=== PATIENT | female | born 1985 | race Caucasian/White ===

== ENCOUNTER 2016-10-27 21:15 | Emergency (ER) | payer SELFPAY ==
[~2016-10-27] VITALS: Ht 162.6 cm; Wt 108.9 kg
--- OUTSIDE RECORDS SUMMARY | 2016-10-27 21:29 | XMS REPORT | Continuity of Care Document ---
Author Author [facility] Organization [facility] Address Unknown Phone Unavailable Care Team Providers Care Shiftman Name Role Phone PCP Unavailable Source Comments Some departments are not documenting in the electronic medical record. If you do not see the information that you expected, contact Release of Information in the Health Information Management department at [phone] for further assistance in locating additional records.[facility] Active Allergies and Adverse Reactions Allergen Noted Date Severity Reactions Comments Benadryl 06/13/2015 Medium HIVES Current Medications Prescription Sig. Disp. Refills Start End Date Status Date Bismuth Subsalicylate 262 Take by mouth twice Active mg tab daily. lithium carbonate 300 mg Take 300 mg by mouth Active tablet twice daily. citalopram (CELEXA) 20 mg Take 20 mg by mouth Active tablet daily. 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 Info given on vaginismus and discussed in detail. Time spent counseling face to face greater than 50% visit. Time=60 minutes Social History Tobacco Use Types Packs/Day Years Used Date Never Smoker Smokeless Tobacco: Never Used Alcohol Use Drinks/Week oz/Week Comments No 0 Standard 0.0 drinks or equivalent Last Filed Vital Signs Vital Sign Reading Time Taken Blood Pressure 132/61 2015 9:51 AM ENTRY LEVEL CHEMIST Pulse 82 2015 9:51 AM ENTRY LEVEL CHEMIST Temperature - - Respiratory Rate - - Height 1.638 m (5' 4.5") 2015 9:51 AM ENTRY LEVEL CHEMIST Weight 111.403 kg (245 lb 9.6 2015 9:51 AM ENTRY LEVEL CHEMIST oz) Body Mass Index 41.52 2015 9:51 AM ENTRY LEVEL CHEMIST Oxygen Saturation 100% 2015 9:51 AM ENTRY LEVEL CHEMIST Plan of Care Health Maintenance Due Date Last Done Comments Physical (Comprehensive) 1992 Exam Pertussis Vaccine 1996 Tetanus Vaccine 2002 Influenza Vaccine 12/24/2016 Cervical Cancer Screening 06/13/2018 06/13/2015 Results from Last 3 Months Not on file
[2016-10-27] MEDS ORDERED: MULT-974 PO (21:42)
[2016-10-27] MEDS ORDERED: NF-ESOM40C PO (21:42)
[2016-10-27 22:02] LABS: BILIRUBIN,URINE NEGATIVE (NEGATIVE); KETONES,URINE NEGATIVE (NEGATIVE); LEUKOCYTE ESTERASE ,URINE 2+ (NEGATIVE); NITRITE,URINE NEGATIVE (NEGATIVE); PH,URINE 5 (5-9); PROTEIN,URINE NEGATIVE (NEGATIVE); UROBILINOGEN,URINE NORMAL (NORMAL)
[2016-10-27] MEDS ORDERED: metroNIDAZOLE 500 MG (FLAGYL) TAB PO STA (22:31)
[2016-10-27] MEDS ORDERED: CLINDAMYCIN 150 MG (CLEOCIN) CAP PO STA (22:31)
[2016-10-27] MEDS ORDERED: DOXY100T2 PO (22:37)
[2016-10-27] MEDS ORDERED: METR500T PO (22:37)
[2016-10-27] MEDS ORDERED: DOXYCYCLINE 100 MG (VIBRAMYCIN) TABLET PO STA (22:38)
--- NOTE | 2016-10-27 22:38 | ED GU-Female ---
General Chief Complaint: -Female Stated Complaint: PELVIC PAIN Nursing Triage Note: pt reports irregular periods x 2 months. pt reports vaginal burning and pain. pt also reports yellow/brown discharge. Nursing Sepsis Screen: No Definite Risk History of Present Illness Time seen by provider: 22:00 Initial Comments Evaluation for pelvic pain and vaginal discharge. The patient has a previous history of PID a proximally 2 years ago. She is also been treated for Trichomonas in the past. She is but they have an open relationship. She reports her symptoms began approximately 2 months ago after having a new partner. Her last pelvic and Pap for approximately one year ago in [place]. She has tried treating herself with Keflex and Monistat, the symptoms continue and seemed to be getting worse. Her denies any symptoms. Timing/Duration: getting worse Severity/Quality: moderate Location: suprapubic, groin, vaginal Radiation: none Prior Genitourinary Problems: similar symptoms Sexual [place] History: multiple partners Associated Symptoms: denies symptoms Allergies and Home Medications Allergies Coded Allergies: diphenhydramine (Unverified Allergy, Mild, 08/27/09) Home Medications Doxycycline Hyclate 100 Mg Tablet, 100 MG PO BID, #28 Ref 0 Prescribed by: JAN WHEATLEY on 10/27/162236 Esomeprazole Magnesium 40 Mg Cap, 40 MG PO, (Reported) Metronidazole 500 Mg Tablet, 500 MG PO BID, #28 Ref 0 Prescribed by: JAN HWEATLEY on 10/27/162236 Multivitamin 1 Each Tablet, 1 EACH PO, (Reported) Constitutional: no symptoms reported, see HPI EENTM: no symptoms reported, see HPI Respiratory: no symptoms reported, see HPI Cardiovascular: no symptoms reported, see HPI Gastrointestinal: no symptoms reported, see HPI Genitourinary: see HPI, burning, discharge, dysuria : No (history of tubal ligation.) Musculoskeletal: no symptoms reported, see HPI Skin: no symptoms reported, see HPI Psychiatric/Neurological: No Symptoms Reported, See HPI Endocrine: No Symptoms Reported, See HPI Hematologic/Lymphatic: No Symptoms Reported, See HPI All Other Systemes Reviewed Negative Unless Noted: Yes Past [place]-Ojylok-Omqpjk Hx Patient Social History Alcohol Use: Denies Use Recreational Drug Use: No Smoking Status: Never a Smoker Recent Foreign Travel: No Contact w/Someone Who Travel: No Recent Infectious Disease Expo: No Surgeries Surgeries: Section, Tonsillectomy, Tubal Ligation Reproductive System Sexually Transmitted Disease: Yes COLLECTION ANALYST History: Tubal Ligation Gastrointestinal Gastrointestinal Disorders: Gastroesophageal Reflux Reviewed Nursing Assessment Reviewed/Agree w Nursing PMH: Yes Physical Exam Vital Signs Vital Sign - Last 12Hours 10/27/16 21:36 Temp 97.7 Pulse 95 Resp 18 B/P (MAP) 130/93 Pulse Ox 98 Capillary Refill : Less Than 3 Seconds General Appearance: WD/WN, no apparent distress Neck: non-tender, full range of motion, supple, normal inspection, No lymphadenopathy (R), No lymphadenopathy (L) Cardiovascular: normal peripheral pulses, regular rate, rhythm, no murmur Respiratory: chest non-tender, lungs clear, normal breath sounds Gastrointestinal: normal bowel sounds, soft, no organomegaly, No guarding, tenderness (suprapubic) Pelvic: normal external exam, normal adnexa, discharge (purulent), tender w/ cervical motion, other (cultures obtained) Extremities: normal range of motion, non-tender, normal inspection, normal capillary refill Neurologic/Psychiatric: no motor/sensory deficits, alert, normal mood/affect, oriented x 3 Skin: normal color, warm/dry Progress/Results/Core Measures Results/Orders Lab Results Laboratory Tests Test 10/27/16 21:56 10/27/16 22:31 Range/Units Urine Color YELLOW Urine Clarity CLEAR Urine pH 5 5-9 Urine Specific [place] 1.015 L 1.016-1.022 Urine Protein NEGATIVE NEGATIVE Urine Glucose (UA) NEGATIVE NEGATIVE Urine Ketones NEGATIVE NEGATIVE Urine Nitrite NEGATIVE NEGATIVE Urine Bilirubin NEGATIVE NEGATIVE Urine Urobilinogen NORMAL NORMAL MG/DL Urine Leukocyte Esterase 2+ H NEGATIVE Urine RBC (Auto) 2+ H NEGATIVE Urine RBC 0-2 /HPF Urine WBC 5-10 H /HPF Urine Squamous Epithelial Cells 2-5 /HPF Urine Crystals NONE /LPF Urine Bacteria TRACE /HPF Urine Casts NONE /LPF Urine Mucus NEGATIVE /LPF Urine Culture Indicated YES Micro Results Microbiology 10/27/16 Genital Culture - Preliminary, Resulted Usual/normal derrick isolated. My Orders Orders - JAN WHEATLEY Ua Culture If Indicated (10/27/16 21:37) Urine Bedside (10/27/16 22:00) Urine Culture (10/27/16 21:56) Ceftriaxone Injection (Rocephin Injectio (10/27/16 22:45) Clindamycin Capsule (Cleocin Capsule) (10/27/16 22:31) Metronidazole Tablet (Flagyl Tablet) (10/27/16 22:31) Lidocaine 1% Injection (Xylocaine 1% Inj (10/27/16 22:45) Doxycycline Hyclate Tablet (Vibramycin T (10/27/16 22:38) Neisseria Gonorrhea Dna (10/27/16 22:39) Chlamydia Dna (10/27/16 22:39) Genital Culture (10/27/16 22:39) Im Injection Antibiotic Ed (10/27/16 ) Medications Given in ED Vital Signs/I&O Blood Pressure Mean: 105 Point of Care Testing Urine -Bedside: Negative Progress Note : Progress Note 10/28/16 [facility] called, patient unable to afford Flagyl and Doxy. Dc'd theses Rxs. Changed Rx to Azithromycin 1 gram po today and refill in 1 week. Discussed this with patient by phone. Will notify patient when all labs from yesterday return and treatment may need to be adjusted. Departure Impression Impression: Primary Impression: Urinary tract infection Qualified Codes: N30.01 - Acute cystitis with hematuria Additional Impression: Pelvic inflammatory disease (PID) Disposition: HOME, SELF-CARE Condition: Stable Departure-Patient Inst. Referrals: NO,LOCAL PHYSICIAN (PCP/Family) Primary Care Physician Patient Instructions: Pelvic Inflammatory Disease (DC), Urinary Tract Infection , Adult (DC) Add. Discharge Instructions: Take all medication as prescribed. Will receive a call with culture results and STD testing in approximately one week. Avoid any new partners until completing treatment. Pending results of testing, partners will need treatment. Return to emergency department for fevers, increased pain, or new problems. All discharge instructions reviewed with patient and/or family. Voiced understanding. Scripts Doxycycline Hyclate (Doxycycline Hyclate) 100 Mg Tablet 100 MG PO BID, #28 TAB 0 Refills Prov: JAN WHEATLEY 10/27/16 Metronidazole (Flagyl) 500 Mg Tablet 500 MG PO BID, #28 TAB 0 Refills Prov: JAN WHEATLEY 10/27/16 JAN WHEATLEY Oct 27, 2016 22:38
[2016-10-27] MEDS ORDERED: LIDOCAINE 1% INJ 20 ML (XYLOCAINE) VIAL INJ ONE (22:45)
[2016-10-27] MEDS ORDERED: cefTRIAXone 250 MG (ROCEPHIN) VIAL IM ONE (22:45)
[2016-10-27 23:09] VITALS: BP 123/67
[2016-10-31] MEDS ORDERED: NITR-65 PO (09:32)
== END 2016-10-27 23:07 | disposition home or self-care (01) ==
LOC: EDUNIT# 21:15 → ER 21:19
DX: N39.0 Urinary tract infection, site not specified (principal); N73.9 Female pelvic inflammatory disease, unspecified; K21.9 Gastro-esophageal reflux disease without esophagitis; Z32.02 Encounter for pregnancy test, result negative; Z98.51 Tubal ligation status; Z90.89 Acquired absence of other organs; Z87.59 Personal history of other complications of pregnancy, childbirth and the puerperium; Z86.19 Personal history of other infectious and parasitic diseases
CPT/HCPCS: 36415; 81000; 84703; 87070; 87077; 87088; 87186; 87491; 87591; 96372; 99284